=== PATIENT | female | born 1980 | race Caucasian/White ===

== ENCOUNTER 2016-09-23 18:17 | Inpatient (IN) | payer MEDICAID ==
[~2016-09-23] VITALS: Ht 165.1 cm; Wt 225.9 kg
[~2016-09-23 18:17] MED LIST: ETOMIDATE 2MG/ML 10ML VIAL IV ONE; STERILE WATER FOR INJECTION 10ML VIAL ONE; SUCCINYLCHOLINE CHLORIDE 200MG/10ML VIAL IV ONE; VECURONIUM BROMIDE 10 MG/VIAL IV ONE
[2016-09-23] MEDS ORDERED: ALBUTEROL (0.083%) 2.5MG/3ML NEB HHN STA (18:38)
[2016-09-23] MEDS ORDERED: METHYLPREDNISOLONE SOD SUCC 125 MG/2 ML VIAL IV STA (18:38)
[2016-09-23] MEDS ORDERED: IPRATROPIUM BROMIDE (0.02%) 0.5MG/2.5ML NEB HHN STA (18:38)
[2016-09-23] MEDS ORDERED: METHYLPREDNISOLONE SOD SUCC 125 MG/2 ML VIAL ONE (18:42)
[2016-09-23] MEDS ORDERED: KETAMINE HCL 50 MG/ML 10ML IV ONE (18:45)
[2016-09-23] MEDS ORDERED: VECURONIUM BROMIDE 10 MG/VIAL IV ONE (18:45)
[2016-09-23] MEDS ORDERED: SUCCINYLCHOLINE CHLORIDE 200MG/10ML VIAL IV ONE (18:45)
[2016-09-23] MEDS ORDERED: PROPOFOL 10MG/ML 100ML 100 ML IV ONE ×3 (18:45→23:00)
[2016-09-23] MEDS ORDERED: SODIUM CHLORIDE 0.9% 1,000 ML IV ONE ×4 (18:55→20:09)
[2016-09-23] MEDS ORDERED: EPINEPHRINE 0.1MG/ML (1:10,000) 10ML SYR ONE (18:57)
[2016-09-23] MEDS ORDERED: MAGNESIUM 1 G PREMIX 200 ML IV ONE (18:58)
[2016-09-23] MEDS ORDERED: MAGNESIUM 2 G PREMIX 50 ML IV ONE (19:00)
[2016-09-23] MEDS ORDERED: EPINEPHRINE 1:1000 1 MG/ML AMP INJ ONE (19:00)
[2016-09-23 19:35] LABS: HEMATOCRIT. 47.2 % (36.0-48.0); MEAN CORPUSCULAR HEMOGLOBIN 26.8 pg (28.0-32.0); MEAN CORPUSCULAR HGB CONC 31.8 g/dL (31.0-37.0); MEAN CORPUSCULAR VOLUME 84.1 fL (81.0-99.0); MEAN PLATELET VOLUME 8.4 fl (7.4-10.4); PLATELET 505 x1000/uL (130-400); RED BLOOD CELL COUNT 5.61 mill/uL (4.2-5.4); RED CELL DISTRIBUTION WIDTH 14.6 % (11.6-14.6); WHITE BLOOD COUNT 33.3 x1000/uL (4.5-11.0)
[2016-09-23 19:36] LABS: DIFFERENTIAL COMMENT 1
[2016-09-23 19:39] LABS: BG DEOXYHEMOGLOBIN 4.1 % (0.0-5.0); BG FRACTION INSPIRED OXYGEN 100; BG HCO3 ACT 22.8 mmol/L (22.0-26.0); BG METHEMOGLOBIN 0.2 % (0.0-1.5); BG OXYGEN SATURATION 95.9 % (92.0-98.5); BG OXYHEMOGLOBIN 94.7 % (94.0-97.0); BG PH 7.295 (7.350-7.450); BG PIP 60 cmH2O; BG PO2 83.6 mmHg (75.0-100.0); BG SAMPLE SITE LEFT RADIAL; BG TIDAL VOLUME(mL) 600 mL; BG TOTAL HEMOGLOBIN 15.4 g/dL (12.0-18.0); BG VENT MODE VENT - A/C; BG VENT RATE 16 set
[2016-09-23 19:43] LABS: INR 1.1
[2016-09-23] MEDS ORDERED: MAGNESIUM 1 G PREMIX 100 ML IV ONE (19:51)
[2016-09-23 19:52] LABS: ALANINE AMINOTRANSFERASE 18 IU/L (13-61); ALBUMIN 3.5 g/dL (3.4-5.0); ANION GAP 13; CALCIUM 9.2 mg/dL (8.5-10.1); CARBON DIOXIDE 29 mEq/L (21-32); CHLORIDE 100 mEq/L (98-107); INDEX HEMOLYSI 1 (1-3); INDEX ICTERIC 1 (1-4); INDEX LIPEMIC 1 (1-3); NT PRO B-TYPE NATRIURETIC PEP 1840 pg/mL (5-125); TROPONIN I < 0.02 ng/mL (0.00-0.04); UREA NITROGEN BLOOD 15 mg/dL (7-21); eGFR > 60 mL/min (>60)
[2016-09-23 19:56] LABS: PLATELET ESTIMATE INCREASED
[2016-09-23] MEDS ORDERED: VANCOMYCIN 1 G PREMIX 200 ML IV SCH (20:15)
[2016-09-23] MEDS ORDERED: PIPERACILLIN/TAZ 3.375G PREMIX 50 ML IV ONE (20:15)
[2016-09-23 22:28] LABS: CLARITY URINE CLOUDY (CLEAR); COLOR URINE DARK YELLOW (YELLOW); GLUCOSE URINE 1+ (NEGATIVE); KETONES URINE NEGATIVE (NEGATIVE); LEUKOCYTE ESTERASE URINE NEGATIVE (NEGATIVE); NITRITE URINE NEGATIVE (NEGATIVE); OCCULT BLOOD URINE 2+ (NEGATIVE); PROTEIN URINE 4+ (NEGATIVE); SPECIFIC GRAVITY URINE 1.032 (1.005-1.030)
[2016-09-23 22:51] LABS: BACTERIA URINE 3+; RBC URINE 15-25 /hpf (0-2); SQUAMOUS EPITHELIAL CELL URINE 1+ /lpf (RARE/1+)
[2016-09-23 23:30] VITALS: BP 135/99
[2016-09-23 23:45] VITALS: BP 137/91
[2016-09-24] VITALS (61 sets, daily range): BP systolic 102–204; BP diastolic 43–156
[2016-09-24] MEDS ORDERED: IPRATROPIUM/ALBUTEROL 0.5-3(2.5)MG/3ML NEB HHN PRN (00:15)
[2016-09-24] MEDS ORDERED: METO100T5 PO (00:53)
[2016-09-24] MEDS ORDERED: METF10002 PO (01:03)
[2016-09-24] MEDS ORDERED: MELO-58 PO (01:03)
[2016-09-24] MEDS ORDERED: CLON0.1T PO (01:03)
[2016-09-24] MEDS ORDERED: FURO20TA4 PO (01:03)
[2016-09-24] MEDS: PROPOFOL 10MG/ML 100ML 100 ML IV PRN ×5 (02:13→09:39)
[2016-09-24] MEDS ORDERED: CEFTRIAXONE 1 G PREMIX 50 ML IV SCH (03:00)
[2016-09-24] MEDS ORDERED: AZITHROMYCIN 500 MG in DEXT 5% WATER 250 ML IV SCH (04:00)
[2016-09-24 06:00] LABS: HEMATOCRIT 43.4 % (36.0-48.0); HEMOGLOBIN 13.6 g/dL (12.0-16.0); MEAN CORPUSCULAR HEMOGLOBIN 26.3 pg (28.0-32.0); MEAN CORPUSCULAR HGB CONC 31.3 g/dL (31.0-37.0); PLATELET 327 x1000/uL (130-400); RED BLOOD CELL COUNT 5.17 mill/uL (4.2-5.4); RED CELL DISTRIBUTION WIDTH 14.8 % (11.6-14.6); WHITE BLOOD COUNT 21.8 x1000/uL (4.5-11.0)
[2016-09-24] MEDS ORDERED: METHYLPREDNISOLONE SOD SUCC 125 MG/2 ML VIAL IV SCH (06:00)
[2016-09-24 06:13] LABS: CALCIUM 8.9 mg/dL (8.5-10.1)
[2016-09-24 07:54] LABS: BG BASE EXCESS -1.4 mmol/L (-2.0-2.0); BG CARBOXYHEMOGLOBIN 0.5 % (0.5-1.5); BG DEOXYHEMOGLOBIN 1.4 % (0.0-5.0); BG FRACTION INSPIRED OXYGEN 100; BG HCO3 ACT 24.8 mmol/L (22.0-26.0); BG METHEMOGLOBIN 0.2 % (0.0-1.5); BG OXYGEN SATURATION 98.6 % (92.0-98.5); BG OXYHEMOGLOBIN 97.9 % (94.0-97.0); BG PCO2 47.4 mmHg (35.0-45.0); BG PH 7.337 (7.350-7.450); BG PO2 127.8 mmHg (75.0-100.0); BG SAMPLE SITE RIGHT RADIAL; BG TIDAL VOLUME(mL) 600 mL; BG TOTAL HEMOGLOBIN 14.2 g/dL (12.0-18.0); BG VENT MODE VENT - A/C; BG VENT RATE 16 set
[2016-09-24] MEDS: ENOXAPARIN 40MG/0.4ML SYR SUBCUT SCH ×2 (08:40→21:19)
[2016-09-24] MEDS: PANTOPRAZOLE SODIUM 40 MG/VIAL IV SCH (08:40)
[2016-09-24] MEDS: IPRATROPIUM/ALBUTEROL 0.5-3(2.5)MG/3ML NEB HHN SCH ×4 (09:01→20:23)
[2016-09-24] MEDS ORDERED: FENTANYL CITRATE/PF 500 MCG in SODIUM CHLORIDE 0.9% 40 ML IV PRN (10:00)
[2016-09-24] MEDS ORDERED: MORPHINE SULFATE 2 MG/ML CPJ (NOT FOR IM USE) IV SCH (10:00)
[2016-09-24] MEDS: LORAZEPAM 2MG/ML CPJ IM PRN ×2 (11:22→18:36)
[2016-09-24] MEDS: PIPERACILLIN SODIUM/TAZOBACTAM 4.5 G in DEXT 5% WATER 100 ML IV SCH ×2 (11:47→17:53)
[2016-09-24] MEDS: FENTANYL CITRATE/PF 500 MCG in SODIUM CHLORIDE 0.9% 40 ML IV PRN ×3 (11:49→19:59)
[2016-09-24] MEDS ORDERED: VANCOMYCIN 1,500 MG in DEXT 5% WATER 250 ML IV SCH (12:00)
[2016-09-24 12:15] LABS: BG BASE EXCESS 0.8 mmol/L (-2.0-2.0); BG CARBOXYHEMOGLOBIN 0.4 % (0.5-1.5); BG DEOXYHEMOGLOBIN 3.3 % (0.0-5.0); BG FRACTION INSPIRED OXYGEN 90; BG HCO3 ACT 25.9 mmol/L (22.0-26.0); BG METHEMOGLOBIN 0.1 % (0.0-1.5); BG OXYGEN SATURATION 96.7 % (92.0-98.5); BG OXYHEMOGLOBIN 96.2 % (94.0-97.0); BG PCO2 42.7 mmHg (35.0-45.0); BG PO2 85.2 mmHg (75.0-100.0); BG SAMPLE SITE RIGHT RADIAL; BG TIDAL VOLUME(mL) 600 mL; BG TOTAL HEMOGLOBIN 14.5 g/dL (12.0-18.0); BG VENT MODE VENT - A/C; BG VENT RATE 16 set
[2016-09-24] MEDS ORDERED: HYDRALAZINE 20MG/ML VIAL IV PRN (13:15)
[2016-09-24] MEDS: METHYLPREDNISOLONE SOD SUCC 40 MG/ML VIAL IV SCH ×2 (14:09→21:19)
[2016-09-24] MEDS: LABETALOL 5MG/ML SYR 20 MG/4 ML SYRINGE IV PRN ×2 (14:09→18:37)
[2016-09-24] MEDS ORDERED: CLONIDINE HCL 0.1MG/24HR PATCH TD SCH (17:00)
[2016-09-24] MEDS: CLONIDINE HCL 0.3MG/24HR PATCH TOP SCH (17:55)
[2016-09-24] MEDS: VANCOMYCIN 1,500 MG in DEXT 5% WATER 250 ML IV SCH (20:52)
[2016-09-25] VITALS (49 sets, daily range): BP systolic 126–188; BP diastolic 86–120
[2016-09-25] MEDS: LABETALOL 5MG/ML SYR 20 MG/4 ML SYRINGE IV PRN ×5 (00:22→20:31)
[2016-09-25] MEDS: IPRATROPIUM/ALBUTEROL 0.5-3(2.5)MG/3ML NEB HHN SCH ×6 (00:25→20:21)
[2016-09-25] MEDS: ENALAPRIL 1.25MG/ML VIAL 1ML IV SCH ×5 (00:25→23:12)
[2016-09-25] MEDS: FENTANYL CITRATE/PF 500 MCG in SODIUM CHLORIDE 0.9% 40 ML IV PRN ×6 (00:57→21:40)
[2016-09-25] MEDS: PIPERACILLIN SODIUM/TAZOBACTAM 4.5 G in DEXT 5% WATER 100 ML IV SCH ×3 (01:09→17:46)
[2016-09-25] MEDS: VANCOMYCIN 1,500 MG in DEXT 5% WATER 250 ML IV SCH ×2 (05:30→13:08)
[2016-09-25] MEDS: METHYLPREDNISOLONE SOD SUCC 40 MG/ML VIAL IV SCH ×3 (05:31→21:42)
[2016-09-25 07:32] LABS: ANION GAP 12; CALCIUM 8.8 mg/dL (8.5-10.1); CARBON DIOXIDE 30 mEq/L (21-32); CHLORIDE 100 mEq/L (98-107); INDEX HEMOLYSI 1 (1-3); INDEX ICTERIC 1 (1-4); INDEX LIPEMIC 1 (1-3); MAGNESIUM 2.4 mg/dL (1.8-2.4); TRIGLYCERIDE 272 mg/dL (0-150); UREA NITROGEN BLOOD 18 mg/dL (7-21); eGFR > 60 mL/min (>60)
[2016-09-25 07:51] LABS: HEMATOCRIT. 37.7 % (36.0-48.0); HEMOGLOBIN. 12.2 g/dL (12.0-16.0); MEAN CORPUSCULAR HEMOGLOBIN 26.2 pg (28.0-32.0); MEAN CORPUSCULAR HGB CONC 32.3 g/dL (31.0-37.0); MEAN CORPUSCULAR VOLUME 81.1 fL (81.0-99.0); MEAN PLATELET VOLUME 8.9 fl (7.4-10.4); PLATELET 310 x1000/uL (130-400); RED BLOOD CELL COUNT 4.65 mill/uL (4.2-5.4); RED CELL DISTRIBUTION WIDTH 14.7 % (11.6-14.6); WHITE BLOOD COUNT 17.7 x1000/uL (4.5-11.0)
[2016-09-25 07:54] LABS: DIFFERENTIAL COMMENT 1
[2016-09-25] MEDS ORDERED: HEPARIN 100 UNITS/1 ML VIAL IVF PRN (08:00)
[2016-09-25 08:09] LABS: BG BASE EXCESS 5.6 mmol/L (-2.0-2.0); BG CARBOXYHEMOGLOBIN 0.1 % (0.5-1.5); BG DEOXYHEMOGLOBIN 2.2 % (0.0-5.0); BG FRACTION INSPIRED OXYGEN 70; BG HCO3 ACT 32.2 mmol/L (22.0-26.0); BG METHEMOGLOBIN 0.5 % (0.0-1.5); BG OXYGEN SATURATION 97.8 % (92.0-98.5); BG OXYHEMOGLOBIN 97.2 % (94.0-97.0); BG PCO2 55.6 mmHg (35.0-45.0); BG PH 7.381 (7.350-7.450); BG SAMPLE SITE RIGHT BRACHIAL; BG TIDAL VOLUME(mL) 600 mL; BG TOTAL HEMOGLOBIN 13.7 g/dL (12.0-18.0); BG VENT MODE VENT - A/C; BG VENT RATE 16 set
[2016-09-25 08:26] LABS: PLATELET ESTIMATE NORMAL
[2016-09-25] MEDS: PANTOPRAZOLE SODIUM 40 MG/VIAL IV SCH (08:38)
[2016-09-25] MEDS: LORAZEPAM 2MG/ML CPJ IM PRN ×2 (08:38→23:12)
[2016-09-25] MEDS: ENOXAPARIN 40MG/0.4ML SYR SUBCUT SCH ×2 (08:39→20:30)
[2016-09-25] MEDS: FUROSEMIDE 40MG/4ML VIAL IVP SCH (11:38)
[2016-09-25] MEDS: MORPHINE SULFATE 4 MG/ML CPJ (NOT FOR IM USE) IV PRN ×3 (11:39→20:04)
[2016-09-25] MEDS: CLONIDINE HCL 0.3MG/24HR PATCH TOP SCH (14:30)
[2016-09-25] MEDS ORDERED: LIDOCAINE HCL 1% 20ML VIAL (Pyxis) INJ ONE (14:39)
[2016-09-26] VITALS (72 sets, daily range): BP systolic 141–201; BP diastolic 92–120
[2016-09-26] MEDS: IPRATROPIUM/ALBUTEROL 0.5-3(2.5)MG/3ML NEB HHN SCH ×6 (00:02→20:29)
[2016-09-26] MEDS: MORPHINE SULFATE 4 MG/ML CPJ (NOT FOR IM USE) IV PRN ×6 (00:23→23:51)
[2016-09-26] MEDS: PIPERACILLIN SODIUM/TAZOBACTAM 4.5 G in DEXT 5% WATER 100 ML IV SCH ×3 (01:01→17:23)
[2016-09-26] MEDS: LABETALOL 5MG/ML SYR 20 MG/4 ML SYRINGE IV PRN ×4 (01:43→17:58)
[2016-09-26] MEDS: FENTANYL CITRATE/PF 500 MCG in SODIUM CHLORIDE 0.9% 40 ML IV PRN ×5 (02:38→17:58)
[2016-09-26] MEDS: LORAZEPAM 2MG/ML CPJ IM PRN (03:11)
[2016-09-26 05:59] LABS: BASOPHILS % 0.1 % (0.0-2.0); HEMATOCRIT. 37.5 % (36.0-48.0); LYMPHOCYTES % 7.1 % (20.0-50.0); MEAN CORPUSCULAR HEMOGLOBIN 26.1 pg (28.0-32.0); MEAN CORPUSCULAR VOLUME 81.7 fL (81.0-99.0); MEAN PLATELET VOLUME 9.3 fl (7.4-10.4); MONOCYTES % 6.3 % (2.0-8.0); NEUTROPHILS % 86.5 % (40.0-76.0); PLATELET 287 x1000/uL (130-400); RED BLOOD CELL COUNT 4.59 mill/uL (4.2-5.4); WHITE BLOOD COUNT 11.7 x1000/uL (4.5-11.0)
[2016-09-26] MEDS: METHYLPREDNISOLONE SOD SUCC 40 MG/ML VIAL IV SCH ×3 (06:13→22:00)
[2016-09-26] MEDS: ENALAPRIL 1.25MG/ML VIAL 1ML IV SCH ×4 (06:14→23:50)
[2016-09-26 06:47] LABS: ALANINE AMINOTRANSFERASE 26 IU/L (13-61); ALBUMIN 2.7 g/dL (3.4-5.0); ANION GAP 13; CALCIUM 8.7 mg/dL (8.5-10.1); CARBON DIOXIDE 30 mEq/L (21-32); CHLORIDE 100 mEq/L (98-107); INDEX HEMOLYSI 1 (1-3); INDEX ICTERIC 1 (1-4); INDEX LIPEMIC 1 (1-3); UREA NITROGEN BLOOD 21 mg/dL (7-21); eGFR > 60 mL/min (>60)
[2016-09-26] MEDS: FUROSEMIDE 40MG/4ML VIAL IVP SCH (08:48)
[2016-09-26] MEDS: SILVER SULFADIAZINE 1% CREAM 50GM TOP SCH (08:48)
[2016-09-26] MEDS: PANTOPRAZOLE SODIUM 40 MG/VIAL IV SCH (08:48)
[2016-09-26] MEDS: AMLODIPINE 5MG TABLET NG SCH ×2 (11:09→22:19)
[2016-09-26] MEDS: VANCOMYCIN 2,000 MG in DEXT 5% WATER 500 ML IV SCH (11:13)
[2016-09-26] MEDS: HYDRALAZINE HCL 50MG TABLET PO SCH ×2 (14:42→20:00)
[2016-09-26] MEDS: GEMFIBROZIL 600MG TABLET PEG SCH (17:22)
[2016-09-26] MEDS ORDERED: HYDRALAZINE HCL 50MG TABLET PO SCH (18:00)
[2016-09-26] MEDS: FENTANYL CITRATE/PF 1,000 MCG in SODIUM CHLORIDE 0.9% 80 ML IV PRN (22:01)
[2016-09-26] MEDS: ENOXAPARIN 40MG/0.4ML SYR SUBCUT SCH (22:19)
[2016-09-27] VITALS (88 sets, daily range): BP systolic 114–233; BP diastolic 58–139
[2016-09-27] MEDS: IPRATROPIUM/ALBUTEROL 0.5-3(2.5)MG/3ML NEB HHN SCH ×6 (00:12→20:06)
[2016-09-27] MEDS: PIPERACILLIN SODIUM/TAZOBACTAM 4.5 G in DEXT 5% WATER 100 ML IV SCH ×3 (01:44→17:21)
[2016-09-27] MEDS: HYDRALAZINE HCL 50MG TABLET PO SCH ×4 (02:49→21:00)
[2016-09-27] MEDS: MORPHINE SULFATE 4 MG/ML CPJ (NOT FOR IM USE) IV PRN ×2 (04:50→09:18)
[2016-09-27] MEDS: FENTANYL CITRATE/PF 1,000 MCG in SODIUM CHLORIDE 0.9% 80 ML IV PRN ×2 (04:57→20:52)
[2016-09-27 06:22] LABS: BASOPHILS % 0.1 % (0.0-2.0); HEMATOCRIT. 37.1 % (36.0-48.0); HEMOGLOBIN. 12.1 g/dL (12.0-16.0); LYMPHOCYTES % 7.8 % (20.0-50.0); MEAN CORPUSCULAR HEMOGLOBIN 26.4 pg (28.0-32.0); MEAN CORPUSCULAR HGB CONC 32.5 g/dL (31.0-37.0); MEAN CORPUSCULAR VOLUME 81.2 fL (81.0-99.0); MEAN PLATELET VOLUME 9.1 fl (7.4-10.4); MONOCYTES % 7.1 % (2.0-8.0); PLATELET 254 x1000/uL (130-400); RED BLOOD CELL COUNT 4.57 mill/uL (4.2-5.4); RED CELL DISTRIBUTION WIDTH 14.4 % (11.6-14.6); WHITE BLOOD COUNT 9.7 x1000/uL (4.5-11.0)
[2016-09-27] MEDS: VANCOMYCIN 2,000 MG in DEXT 5% WATER 500 ML IV SCH (06:32)
[2016-09-27 06:47] LABS: ANION GAP 13; CARBON DIOXIDE 31 mEq/L (21-32); CHLORIDE 100 mEq/L (98-107); INDEX HEMOLYSI 1 (1-3); INDEX ICTERIC 1 (1-4); INDEX LIPEMIC 1 (1-3); UREA NITROGEN BLOOD 26 mg/dL (7-21); eGFR > 60 mL/min (>60)
[2016-09-27] MEDS: ENALAPRIL 1.25MG/ML VIAL 1ML IV SCH ×4 (07:02→23:18)
[2016-09-27] MEDS: METHYLPREDNISOLONE SOD SUCC 40 MG/ML VIAL IV SCH (07:02)
[2016-09-27] MEDS: GEMFIBROZIL 600MG TABLET PEG SCH ×2 (09:14→17:24)
[2016-09-27] MEDS: FUROSEMIDE 40MG/4ML VIAL IVP SCH (09:15)
[2016-09-27] MEDS: PANTOPRAZOLE SODIUM 40 MG/VIAL IV SCH (09:15)
[2016-09-27] MEDS: ENOXAPARIN 40MG/0.4ML SYR SUBCUT SCH ×2 (09:15→21:38)
[2016-09-27] MEDS: SILVER SULFADIAZINE 1% CREAM 50GM TOP SCH (09:16)
[2016-09-27] MEDS: AMLODIPINE 5MG TABLET NG SCH ×2 (11:37→22:58)
[2016-09-27] MEDS: METOCLOPRAMIDE HCL 10MG/2ML VIAL IV SCH ×2 (12:11→17:22)
[2016-09-27 12:31] LABS: BG BASE EXCESS 6.3 mmol/L (-2.0-2.0); BG CARBOXYHEMOGLOBIN 0.8 % (0.5-1.5); BG DEOXYHEMOGLOBIN 7.2 % (0.0-5.0); BG FRACTION INSPIRED OXYGEN 40; BG HCO3 ACT 33.2 mmol/L (22.0-26.0); BG METHEMOGLOBIN 0.3 % (0.0-1.5); BG OXYGEN SATURATION 92.7 % (92.0-98.5); BG OXYHEMOGLOBIN 91.7 % (94.0-97.0); BG PCO2 57.1 mmHg (35.0-45.0); BG PH 7.382 (7.350-7.450); BG PO2 67.3 mmHg (75.0-100.0); BG PRESSURE SUPPORT 10; BG SAMPLE SITE RIGHT BRACHIAL; BG TOTAL HEMOGLOBIN 13.9 g/dL (12.0-18.0); BG VENT MODE VENT - CPAP
[2016-09-27] MEDS: HYDROMORPHONE HCL/PF 2MG/ML CPJ IV PRN ×2 (13:26→18:38)
[2016-09-27] MEDS: LABETALOL 5MG/ML SYR 20 MG/4 ML SYRINGE IV PRN (13:41)
[2016-09-27] MEDS: NITROGLYCERIN OINT 1GM/INCH UDPKT TD SCH ×2 (14:19→21:39)
[2016-09-27] MEDS ORDERED: HYDRALAZINE 20MG/ML VIAL IV SCH (14:45)
[2016-09-27] MEDS ORDERED: MIDAZOLAM HCL 50 MG in DEXTROSE 5% WATER 40 ML IV PRN (16:45)
[2016-09-27] MEDS ORDERED: FENTANYL CITRATE/PF 500 MCG in SODIUM CHLORIDE 0.9% 40 ML IV PRN (16:45)
[2016-09-27 17:27] LABS: BG BASE EXCESS -0.7 mmol/L (-2.0-2.0); BG CARBOXYHEMOGLOBIN 0.4 % (0.5-1.5); BG DEOXYHEMOGLOBIN 1.2 % (0.0-5.0); BG FRACTION INSPIRED OXYGEN 100; BG HCO3 ACT 24.9 mmol/L (22.0-26.0); BG METHEMOGLOBIN 0.2 % (0.0-1.5); BG OXYGEN SATURATION 98.8 % (92.0-98.5); BG OXYHEMOGLOBIN 98.2 % (94.0-97.0); BG PCO2 44.6 mmHg (35.0-45.0); BG PH 7.365 (7.350-7.450); BG PO2 138.4 mmHg (75.0-100.0); BG SAMPLE SITE RIGHT RADIAL; BG TIDAL VOLUME(mL) 600 mL; BG TOTAL HEMOGLOBIN 13.5 g/dL (12.0-18.0); BG VENT MODE VENT - A/C; BG VENT RATE 16 set
[2016-09-27] MEDS ORDERED: HYDRALAZINE 20MG/ML VIAL IV PRN (17:45)
[2016-09-27] MEDS ORDERED: LORAZEPAM 2MG/ML CPJ IV PRN (17:45)
[2016-09-27] MEDS: MIDAZOLAM HCL 100 MG in DEXT 5% WATER 80 ML IV PRN (23:00)
[2016-09-28] VITALS (62 sets, daily range): BP systolic 84–158; BP diastolic 48–98
[2016-09-28] MEDS: VANCOMYCIN 2,000 MG in DEXT 5% WATER 500 ML IV SCH ×2 (00:06→19:58)
[2016-09-28] MEDS: METOCLOPRAMIDE HCL 10MG/2ML VIAL IV SCH ×5 (00:06→23:44)
[2016-09-28] MEDS: IPRATROPIUM/ALBUTEROL 0.5-3(2.5)MG/3ML NEB HHN SCH ×7 (00:11→23:55)
[2016-09-28] MEDS: HYDROMORPHONE HCL/PF 2MG/ML CPJ IV PRN ×7 (01:36→21:59)
[2016-09-28] MEDS: HYDRALAZINE HCL 50MG TABLET PO SCH ×4 (03:00→21:00)
[2016-09-28] MEDS: PIPERACILLIN SODIUM/TAZOBACTAM 4.5 G in DEXT 5% WATER 100 ML IV SCH ×3 (03:39→17:29)
[2016-09-28] MEDS: FENTANYL CITRATE/PF 1,000 MCG in SODIUM CHLORIDE 0.9% 80 ML IV PRN ×4 (04:44→17:43)
[2016-09-28 05:39] LABS: BASOPHILS % 0.1 % (0.0-2.0); EOSINOPHILS % 0.3 % (0.0-5.0); HEMATOCRIT. 35.5 % (36.0-48.0); HEMOGLOBIN. 11.5 g/dL (12.0-16.0); MEAN CORPUSCULAR HEMOGLOBIN 26.2 pg (28.0-32.0); MEAN CORPUSCULAR HGB CONC 32.4 g/dL (31.0-37.0); MEAN CORPUSCULAR VOLUME 80.8 fL (81.0-99.0); MEAN PLATELET VOLUME 9.4 fl (7.4-10.4); MONOCYTES % 11.1 % (2.0-8.0); NEUTROPHILS % 69.5 % (40.0-76.0); PLATELET 240 x1000/uL (130-400); RED BLOOD CELL COUNT 4.39 mill/uL (4.2-5.4); RED CELL DISTRIBUTION WIDTH 14.5 % (11.6-14.6); WHITE BLOOD COUNT 11.1 x1000/uL (4.5-11.0)
[2016-09-28 06:03] LABS: ANION GAP 12; CALCIUM 8.5 mg/dL (8.5-10.1); CARBON DIOXIDE 30 mEq/L (21-32); CHLORIDE 101 mEq/L (98-107); INDEX HEMOLYSI 1 (1-3); INDEX ICTERIC 1 (1-4); INDEX LIPEMIC 1 (1-3); UREA NITROGEN BLOOD 30 mg/dL (7-21); eGFR > 60 mL/min (>60)
[2016-09-28] MEDS: ENALAPRIL 1.25MG/ML VIAL 1ML IV SCH ×4 (06:04→17:34)
[2016-09-28] MEDS: NITROGLYCERIN OINT 1GM/INCH UDPKT TD SCH ×3 (06:05→22:20)
[2016-09-28] MEDS ORDERED: FENTANYL CITRATE/PF 1,000 MCG in SODIUM CHLORIDE 0.9% 80 ML IV PRN (07:15)
[2016-09-28 08:27] LABS: BG BASE EXCESS 5.7 mmol/L (-2.0-2.0); BG CARBOXYHEMOGLOBIN 0.4 % (0.5-1.5); BG FRACTION INSPIRED OXYGEN 50; BG METHEMOGLOBIN 0.2 % (0.0-1.5); BG OXYHEMOGLOBIN 98.4 % (94.0-97.0); BG PCO2 42.2 mmHg (35.0-45.0); BG PH 7.469 (7.350-7.450); BG PO2 147.7 mmHg (75.0-100.0); BG SAMPLE SITE RIGHT BRACHIAL; BG TIDAL VOLUME(mL) 600 mL; BG TOTAL HEMOGLOBIN 12.7 g/dL (12.0-18.0); BG VENT MODE VENT - A/C; BG VENT RATE 16 set
[2016-09-28] MEDS: FUROSEMIDE 40MG/4ML VIAL IVP SCH (08:47)
[2016-09-28] MEDS: PANTOPRAZOLE SODIUM 40 MG/VIAL IV SCH (08:47)
[2016-09-28] MEDS: GEMFIBROZIL 600MG TABLET PEG SCH ×2 (08:48→18:40)
[2016-09-28] MEDS: ENOXAPARIN 40MG/0.4ML SYR SUBCUT SCH ×2 (08:48→21:22)
[2016-09-28] MEDS: SILVER SULFADIAZINE 1% CREAM 50GM TOP SCH (09:00)
[2016-09-28] MEDS: AMLODIPINE 5MG TABLET NG SCH ×2 (11:00→22:20)
[2016-09-28] MEDS ORDERED: POTASSIUM CHLORIDE INJ 40 MEQ in DEXT 5% WATER 250 ML IV SCH (12:00)
[2016-09-28] MEDS: MIDAZOLAM HCL 100 MG in DEXT 5% WATER 80 ML IV PRN (12:21)
[2016-09-29] VITALS (45 sets, daily range): BP systolic 86–156; BP diastolic 49–96
[2016-09-29] MEDS: HYDROMORPHONE HCL/PF 2MG/ML CPJ IV PRN ×7 (00:13→19:51)
[2016-09-29] MEDS: FENTANYL CITRATE/PF 1,000 MCG in SODIUM CHLORIDE 0.9% 80 ML IV PRN ×4 (01:02→23:36)
[2016-09-29] MEDS: PIPERACILLIN SODIUM/TAZOBACTAM 4.5 G in DEXT 5% WATER 100 ML IV SCH ×2 (01:20→09:06)
[2016-09-29] MEDS: MIDAZOLAM HCL 100 MG in DEXT 5% WATER 80 ML IV PRN ×2 (02:37→22:13)
[2016-09-29] MEDS: IPRATROPIUM/ALBUTEROL 0.5-3(2.5)MG/3ML NEB HHN SCH ×6 (03:47→23:53)
[2016-09-29] MEDS: HYDRALAZINE HCL 50MG TABLET PO SCH ×4 (04:15→20:56)
[2016-09-29] MEDS: NITROGLYCERIN OINT 1GM/INCH UDPKT TD SCH (05:59)
[2016-09-29] MEDS: METOCLOPRAMIDE HCL 10MG/2ML VIAL IV SCH ×4 (05:59→23:11)
[2016-09-29] MEDS: GEMFIBROZIL 600MG TABLET PEG SCH ×2 (08:44→17:24)
[2016-09-29] MEDS: ENOXAPARIN 40MG/0.4ML SYR SUBCUT SCH ×2 (08:44→20:05)
[2016-09-29] MEDS: PANTOPRAZOLE SODIUM 40 MG/VIAL IV SCH (08:44)
[2016-09-29] MEDS: FUROSEMIDE 40MG/4ML VIAL IVP SCH (08:44)
[2016-09-29] MEDS: SILVER SULFADIAZINE 1% CREAM 50GM TOP SCH (08:45)
[2016-09-29] MEDS: AMLODIPINE 5MG TABLET NG SCH ×2 (11:00→22:03)
[2016-09-29 11:09] LABS: BG BASE EXCESS 2.1 mmol/L (-2.0-2.0); BG CARBOXYHEMOGLOBIN 0.2 % (0.5-1.5); BG DEOXYHEMOGLOBIN 1.9 % (0.0-5.0); BG FRACTION INSPIRED OXYGEN 40; BG HCO3 ACT 26.3 mmol/L (22.0-26.0); BG METHEMOGLOBIN 0.1 % (0.0-1.5); BG OXYGEN SATURATION 98.1 % (92.0-98.5); BG OXYHEMOGLOBIN 97.8 % (94.0-97.0); BG PCO2 39.2 mmHg (35.0-45.0); BG PH 7.444 (7.350-7.450); BG PO2 115.6 mmHg (75.0-100.0); BG SAMPLE SITE RIGHT BRACHIAL; BG TIDAL VOLUME(mL) 600 mL; BG TOTAL HEMOGLOBIN 12.8 g/dL (12.0-18.0); BG VENT MODE VENT - A/C; BG VENT RATE 14 set
[2016-09-29] MEDS: CEFTRIAXONE 1 G PREMIX 50 ML IV SCH (14:12)
[2016-09-29] MEDS: AMPICILLIN 1,000 MG in SODIUM CHLORIDE 0.9% 50 ML IV SCH ×2 (14:51→20:05)
[2016-09-30] VITALS (14 sets, daily range): BP systolic 97–158; BP diastolic 52–95
[2016-09-30] MEDS: CEFTRIAXONE 1 G PREMIX 50 ML IV SCH (02:03)
[2016-09-30] MEDS: HYDRALAZINE HCL 50MG TABLET PO SCH ×2 (02:52→08:17)
[2016-09-30] MEDS: AMPICILLIN 1,000 MG in SODIUM CHLORIDE 0.9% 50 ML IV SCH ×2 (02:57→08:17)
[2016-09-30] MEDS: HYDROMORPHONE HCL/PF 2MG/ML CPJ IV PRN ×4 (03:10→10:50)
[2016-09-30] MEDS: METOCLOPRAMIDE HCL 10MG/2ML VIAL IV SCH ×2 (05:42→12:41)
[2016-09-30] MEDS: FENTANYL CITRATE/PF 1,000 MCG in SODIUM CHLORIDE 0.9% 80 ML IV PRN (07:23)
[2016-09-30] MEDS: PANTOPRAZOLE SODIUM 40 MG/VIAL IV SCH (08:17)
[2016-09-30] MEDS: FUROSEMIDE 40MG/4ML VIAL IVP SCH (08:17)
[2016-09-30] MEDS: GEMFIBROZIL 600MG TABLET PEG SCH (08:17)
[2016-09-30] MEDS: SILVER SULFADIAZINE 1% CREAM 50GM TOP SCH (08:18)
[2016-09-30] MEDS: ENOXAPARIN 40MG/0.4ML SYR SUBCUT SCH (08:18)
[2016-09-30] MEDS: IPRATROPIUM/ALBUTEROL 0.5-3(2.5)MG/3ML NEB HHN SCH ×2 (08:21→12:37)
[2016-09-30 10:25] LABS: ALPHA FETOPROTEIN TUMOR MARKER 3.3 ng/mL (0.0-8.3)
[2016-09-30] MEDS: AMLODIPINE 5MG TABLET NG SCH (10:49)
[2016-09-30] MEDS ORDERED: HYDRALAZINE HCL 25MG TABLET PO SCH (15:00)
[2016-10-01] MEDS ORDERED: CLONIDINE HCL 0.3MG/24HR PATCH TD SCH (09:00)
[2016-10-02] MEDS ORDERED: CLONIDINE HCL 0.3MG/24HR PATCH TD SCH (09:00)
== END 2016-09-30 13:20 | disposition short-term general hospital (02) | DRG 720 ==
LOC: ER 18:41 → CVICU 21:49
PROVIDERS: ADMIT Internal Medicine; ATTEND Internal Medicine
PROC: 5A1955Z Respiratory Ventilation, Greater than 96 Consecutive Hours (ICD-10-PCS; principal; 2016-09-23)
PROC: 0BH17EZ Insertion of Endotracheal Airway into Trachea, Via Natural or Artificial Opening (ICD-10-PCS; 2016-09-23)
PROC: 05H533Z Insertion of Infusion Device into Right Subclavian Vein, Percutaneous Approach (ICD-10-PCS; 2016-09-25)
DX: A41.9 Sepsis, unspecified organism (principal); J96.01 Acute respiratory failure with hypoxia; S30.92XA Unspecified superficial injury of abdominal wall, initial encounter; R65.20 Severe sepsis without septic shock; I11.0 Hypertensive heart disease with heart failure; I50.9 Heart failure, unspecified; E66.2 Morbid (severe) obesity with alveolar hypoventilation; J45.901 Unspecified asthma with (acute) exacerbation; R18.8 Other ascites; D63.8 Anemia in other chronic diseases classified elsewhere; N39.0 Urinary tract infection, site not specified; E11.9 Type 2 diabetes mellitus without complications; E78.00 Pure hypercholesterolemia, unspecified; E78.1 Pure hyperglyceridemia; F32.9 Major depressive disorder, single episode, unspecified; G43.909 Migraine, unspecified, not intractable, without status migrainosus; J98.11 Atelectasis; L89.90 Pressure ulcer of unspecified site, unspecified stage; R23.0 Cyanosis; L03.90 Cellulitis, unspecified; R00.0 Tachycardia, unspecified; I87.2 Venous insufficiency (chronic) (peripheral); R19.00 Intra-abdominal and pelvic swelling, mass and lump, unspecified site; Z79.899 Other long term (current) drug therapy; Z68.45 Body mass index [BMI] 70 or greater, adult; Z80.9 Family history of malignant neoplasm, unspecified; Z87.891 Personal history of nicotine dependence; Z88.8 Allergy status to other drugs, medicaments and biological substances; L89.899 Pressure ulcer of other site, unspecified stage
CPT/HCPCS: 31500; 36415; 36569; 36600; 43753; 51702; 71010; 76700; 76705; 76937; 78580; 80048; 80053; 80202; 81001; 82105; 82375; 82378; 82805; 82962; 83605; 83735; 83880; 84478; 84484; 85025; 85027; 85610; 85730; 86140; 86301; 86850; 86900; 87040; 87070; 87077; 87086; 87186; 87205; 93005; 93306; 93970; 94003; 94640; 96365; 96375; 99291; A4216; A6261; C1725; C9113; J0171; J0290; J0330; J0360; J0456; J0696; J1170; J1650; J1940; J2060; J2250; J2270; J2543; J2704; J2765; J2920; J2930; J3010; J3370; J3475; J3480; J3490; J7030; J7040; J7042; J7050; J7060; J7611; J7620; A4315

== ENCOUNTER 2019-05-16 16:45 | Emergency (ER) | payer MEDICAID, MEDICARE ==
[~2019-05-16] VITALS: Ht 172.7 cm; Wt 118.0 kg
[2019-05-16 16:45] VITALS: BP 0/0
[~2019-05-16 16:45] MED LIST changes: +CLON0.1T PO; +FURO20TA4 PO; +MELO-106 PO; +METF-416 PO; +METO100T16 PO; -STERILE WATER FOR INJECTION 10ML VIAL ONE; +SUCCINYLCHOLINE CHLORIDE 200MG/10ML IV ONE; -SUCCINYLCHOLINE CHLORIDE 200MG/10ML VIAL IV ONE; -VECURONIUM BROMIDE 10 MG/VIAL IV ONE
[2019-05-16] MEDS ORDERED: EPINEPHRINE 0.1MG/ML (1:10,000) 10ML SYR ONE (16:58)
[2019-05-16] MEDS ORDERED: SODIUM BICARBONATE 8.4% 1 MEQ/ML 50ML SYR IV ONE ×2 (16:59→17:00)
== END 2019-05-16 17:07 | disposition expired ==
LOC: ER 16:45
DX: I46.9 Cardiac arrest, cause unspecified (principal); I10 Essential (primary) hypertension; E11.9 Type 2 diabetes mellitus without complications; E66.01 Morbid (severe) obesity due to excess calories; Z68.39 Body mass index [BMI] 39.0-39.9, adult; Z98.1 Arthrodesis status; Z79.84 Long term (current) use of oral hypoglycemic drugs; Z88.8 Allergy status to other drugs, medicaments and biological substances
CPT/HCPCS: 31500; 92950; 99285; J0330; J3490